=== PATIENT | female | born 1950 | race Caucasian/White ===

== ENCOUNTER → 2017-01-23 | Outpatient (CLI) | payer MEDICARE, OTHER ==
--- NOTE | 2017-01-23 12:42 | RADIOLOGY REPORT PS360 ---
History and Indications: Hypertension, family history, chest pain, shortness of breath, fatigue, abnormal EKG. Procedure: Patient received a 0.4 mg of Lexiscan, resting heart rate was 82 beats prominent, resting blood pressure 121/82, with Lexiscan maximum heart rate achieved was 108 bpm, which is less than 85% of the maximum predicted heart rate and a blood pressure was 113/63. With Lexiscan patient complained of chest pressure and shortness of breath Electrocardiogram: Resting electrocardiogram showed sinus rhythm poor R wave progression, with Lexiscan there is less than 1.5 mm the baseline EKG. The EKG portion of the Lexiscan Myoview is nondiagnostic. Cardiac stress and resting SPECT images: Cardiac stress and rest SPECT images were obtained using technetium 99 Myoview 10.5 mCi at rest 30.6 mCi at stress, gated SPECT further analysis of segmental wall motion and calculation of the ejection fraction also done. Cardiac stress and rest images show uniform myocardial activity without any segmental perfusion abnormality, computer derived ejection fraction is over 65% with no obvious regional wall motion abnormality, right ventricle size and contractility. Conclusion: 1. The EKG portion of the Lexiscan Myoview is nondiagnostic. 2. No obvious scintigraphic evidence of reversible ischemia seen, computer derived ejection fraction is over 65% with no obvious regional wall motion abnormality, right ventricle is normal size and contractility. 3. Normal Lexiscan Myoview study.
--- NOTE | 2017-01-23 12:55 | RADIOLOGY REPORT PS360 ---
PROCEDURE: 2-D M-mode and color Doppler study INDICATIONS FOR THE TEST: Chest pain X COPD Heart Murmur Tobacco Smoking PalpitationsX FatigueX Syncope Edema HypertensionXDiabetes Mellitus Rheumatic Fever SOBXDOE Obesity Hyperlipidemia Family History HDX Additional History PATIENT INFORMATION HEIGHT: 62 WEIGHT:154 GENDER: Female B/P:121/82 2-D/M-MODE INTERPRETATION: 2-D MEASUREMENTS OBSERVED VALUES IN CMS Right Ventricular Dimension (RVDd) 1.6 Interventricular Septum (Thickness)(IVsd) 1.2 Left Ventricular Internal Dimensions(LVIDd) 2.2 Left Ventricular Posterior Wall (Thickness)(LVPWd) 1.1 Aortic Root 2.9 Aortic Cusp Separation 2.0 Left Atrial Dimensions (LAD) 2.8 2D 1. Technically difficult study because of the patient's factor and poor acoustic windows, endocardial surfaces as well as the valvular structures are not well visualized. 2. The left atrium is mildly enlarged, left ventricle is normal size, there is mild concentric left ventricular hypertrophy present, there is hyperdynamic left ventricular systolic function, visually estimated ejection fraction over 65%, there is no obvious regional wall motion abnormality. 3. The right atrium and right ventricle are normal size and contractility. 4. The aortic valve is minimally thickened and fibrosed. 5. The mitral valve morphology is not well visualized, possibility of systolic anterior motion of the mitral valve leaflets cannot be excluded. 6. The tricuspid valve is not well visualized 7. The pulmonic valve is poorly visualized. DOPPLER INTERROGATION: Doppler interrogation of the aortic, mitral and tricuspid valve reveals presence of late peaking aortic out flow velocity, which is not accurately recorded, there velocity is as high as 3 m/s resulting in a peak instantaneous gradient of 36 mmHg is present in the left ventricular outflow tract presenting dynamic left ventricular outflow track obstruction. There is no Valsalva performed. Grade 1 diastolic dysfunction seen without tissue Doppler evidence of raised left atrial pressure. Mild mitral and tricuspid regurgitation, tricuspid regurgitant jet velocity insufficient for calculation of the right ventricular systolic pressure. CONCLUSION: 1. Technically difficult study because of the patient's factor and poor acoustic windows, endocardial surfaces as well as the valvular structures are not well visualized. 2. Mildly enlarged left atrium, normal left ventricular size, mild concentric left ventricular hypertrophy, hyperdynamic left ventricular systolic function, visually estimated ejection fraction of over 65% with no obvious regional wall motion abnormality. There is likely dynamic left ventricular outflow track obstruction present, with peak instantaneous gradient of 36 mmHg present at rest. There is no reversible performed. Grade 1 diastolic dysfunction seen without tissue Doppler evidence of raised left atrial pressure. 2. Mild mitral and tricuspid regurgitation. 3. No significant pericardial effusion noted.
== END ==
LOC: RAD 01-21 12:00
DX: I20.8 Other forms of angina pectoris (principal); R07.9 Chest pain, unspecified; R06.00 Dyspnea, unspecified; R94.31 Abnormal electrocardiogram [ECG] [EKG]; G25.81 Restless legs syndrome; Z82.49 Family history of ischemic heart disease and other diseases of the circulatory system